=== PATIENT | female | born 1975 | race Two or more races ===

== ENCOUNTER 2023-07-07 12:15 | Inpatient (IN) | payer OTHER ==
[~2023-07-07] VITALS: Ht 165.1 cm; Wt 67.1 kg
[2023-07-13] MEDS ORDERED: CEFAZOLIN SODIUM 1,000 MG VIAL ONE ×2 (12:57→16:31)
[2023-07-13] MEDS ORDERED: POVIDONE-IODINE 118 ML BOTT TOP ONE ×2 (12:57→14:15)
[2023-07-13] MEDS ORDERED: CEFAZOLIN SODIUM 1,000 MG VIAL IV ONE (14:15)
[2023-07-13] MEDS ORDERED: HEMOSTATIC MATRIX 1 KIT KIT TOP ONE ×4 (14:28→14:31)
[2023-07-13] MEDS ORDERED: MORPHINE SULFATE 4 MG,MORPHINE SULFATE 2 MG IV PRN (15:15)
[2023-07-13] MEDS ORDERED: ONDANSETRON HCL 2 MG/ML VIAL IV PRN (15:15)
[2023-07-13] MEDS ORDERED: RINGERS SOLUTION,LACTATED 1,000 ML IV SCH (15:15)
[2023-07-13] MEDS ORDERED: MEDROXYPROGESTE10 MG (15:16)
[2023-07-13] MEDS ORDERED: SUGAMMADEX SODIUM 200 MG/2 ML VIAL IV ONE ×2 (15:35→15:45)
[2023-07-13] MEDS ORDERED: CEFAZOLIN SODIUM 1,000 MG VIAL IV SCH (18:00)
[2023-07-13 20:31] LABS: HEMATOCRIT 31.7 % (36.0-45.00); HEMOGLOBIN 10.2 g/dL (12.0-15.00); MEAN CELL VOLUME 79.6 fL (80.00-100.00); MEAN CORPUSCULAR HEMOGLOBIN 25.5 pg (27.00-32.0); MEAN CORPUSCULAR HGB CONC 32.1 g/dl (32.0-36.0); PLATELET COUNT 245 K/uL (150-450); RED BLOOD COUNT 3.98 M/uL (4.00-6.00); RED CELL DISTRIBUTION WIDTH 15.6 % (11.5-14.5)
[2023-07-14] MEDS ORDERED: GABAPENTIN 300 MG CAPSULE PO SCH (09:00)
[2023-07-14] MEDS ORDERED: SIMETHICONE 125 MG CAPSULE PO SCH (09:00)
[2023-07-14] MEDS ORDERED: ENOXAPARIN SODIUM 40 MG/0.4 ML SYRINGE SUBCUTANEO SCH (09:00)
[2023-07-14] MEDS ORDERED: ENALAPRILAT DIHYDRATE 1.25 MG/ML VIAL IV PRN (12:00)
[2023-07-14] MEDS ORDERED: ACETAMINOPHEN 500 MG GEL..CAP PO SCH (12:00)
[2023-07-14] MEDS ORDERED: FAMOtidine 20 MG TABLET PO SCH (15:00)
[2023-07-15] MEDS ORDERED: MAXFE CAPLET1 EAC1 PO ×2 (07:31→07:33)
[2023-07-15] MEDS ORDERED: GABAPENTIN300 MG PO (07:32)
[2023-07-15] MEDS ORDERED: LEVSIN/SL0.125 MG SL (07:32)
[2023-07-15] MEDS ORDERED: PAIN RELIEVER500 M2 PO (07:32)
== END 2023-07-15 10:03 | disposition home or self-care (01) | DRG 743 ==
LOC: OB/GYN 07-13 07:36 → O/R 07-13 07:36 → OB/GYN 07-13 11:45
PROVIDERS: ADMIT Obstetrics & Gynecology Gynecology; ATTEND Obstetrics & Gynecology Gynecology
PROC: 0UT90ZZ Resection of Uterus, Open Approach (ICD-10-PCS; principal; 2023-07-13 11:45)
DX: D25.1 Intramural leiomyoma of uterus (principal); D25.2 Subserosal leiomyoma of uterus; N72 Inflammatory disease of cervix uteri; Z20.822 Contact with and (suspected) exposure to COVID-19